=== PATIENT | female | born 1960 | race African-American/Black ===

== ENCOUNTER 2018-03-12 12:55 | Outpatient (CLI) | payer OTHER | END 2018-03-12 12:56 | disposition home or self-care (01) | LOC: BICMAMMO 12:55 | PROVIDERS: ATTEND Family Medicine | DX: Z12.31 Encounter for screening mammogram for malignant neoplasm of breast (principal) | CPT/HCPCS: 77063; 77067 ==

== ENCOUNTER 2020-01-17 11:26 | Emergency (ER) | payer SELFPAY ==
[2020-01-17] MEDS ORDERED: Morphine 4 MG/ML VIAL ONE (12:08)
[2020-01-17] MEDS ORDERED: Ondansetron PF 4 MG/2 ML Vial ONE (12:08)
[2020-01-17 12:28] LABS: #Monocytes 0.7 thou/uL (0.11-0.59); #Neutrophils 7.8 thou/uL (1.40-6.50); %Basophils 0.1 % (0.0-1.0); %Eosinophils 0.1 % (0.0-10.0); %Monocytes 7.1 % (0.0-10.0); %Neutrophils 81.8 % (42.0-75.0); Hemoglobin 12.4 g/dL (12.0-16.0); Mean Corpuscular HGB CONC 32.1 g/dL (32.0-36.0); Mean Corpuscular Hemoglobin 26.5 pg (27.0-31.0); Mean Corpuscular Volume 82.4 fL (78.0-98.0); Mean Platelet Volume 7.6 fL (7.4-10.4); Platelet Count 280 thou/uL (130-400); RBC Distribution Width 12.2 % (11.5-14.5); Red Blood Cell (RBC) Count 4.67 mill/uL (4.20-5.40); White Blood Cell (WBC) Count 9.5 thou/uL (4.8-10.8)
[2020-01-17 12:30] LABS: Bilirubin Negative (Negative); Blood, Urine Trace (Negative); Clarity Turbid (Clear); Glucose, Urine (Dipstick) Normal (Negative); Leukocyte Negative Leu/uL (Negative); Mucous/LPF 1+ LPF (<2+); Nitrite Negative (Negative); Protein, Urine (Dipstick) 30 mg/dL (Neg-Trace); RBC/HPF 0-3 HPF (0-3); Squamous Epithelial 21-50 HPF (0-3); Urobilinogen Normal mg/dL (Less than 2)
[2020-01-17 12:36] LABS: Bacteria/HPF 2+ HPF (None Seen)
[2020-01-17 12:50] LABS: ALT (SGPT) 14 U/L (8-55); AST (SGOT) 11 U/L (5-34); Albumin 4.2 g/dL (3.5-5.0); Alkaline Phosphatase 98 U/L (40-110); Anion Gap 14 mmol/L (10-20); BUN (Urea Nitrogen) 11 mg/dL (9.8-20.1); Bilirubin, Total 1.3 mg/dL (0.2-1.2); Calc. Creatinine Clearance 0 mL/min (70-130); Calcium 9.2 mg/dL (7.8-10.44); Carbon Dioxide 29 mmol/L (22-29); Chloride 98 mmol/L (98-107); Estimated GFR-MDRD 74; Globulin 3.1 g/dL (2.4-3.5); Glucose 119 mg/dL (70-105); Lipase 10 U/L (8-78); Potassium 3.3 mmol/L (3.5-5.1); Protein, Total 7.3 g/dL (6.0-8.3); Sodium 138 mmol/L (136-145)
--- NOTE | 2020-01-17 12:52 | CT ---
CT ABDOMEN AND PELVIS WITHOUT CONTRAST: HISTORY: Right side flank pain. FINDINGS: Absence of oral and IV contrast reduces the sensitivity of the exam, particularly for the evaluation of solid organs involved. There are mild infiltrates versus atelectatic changes in the lung bases. No free air or free fluid is seen in the abdomen or pelvis. A partially calcified gallstone is present. The appendix is normal. T he small bowel loops are not abnormally dilated. There is no evidence of aneurysmal dilatation of the abdominal aorta. There are mild degenerative changes in the spine. Large mass in the right lobe of t he liver, likely hemangioma is stable since 05/25/2009. No calculi are seen in the kidneys, ureters or urinary bladder. No hydroureteronephrosis is noted on either side. Uterus is present. IMPRESSION: 1. Bibasilar atelectasis versus mild infiltrates. 2. Cholelithiasis. 3. No CT evidence of urinary tract calculi or obstruction or appendicitis. POS: [facility]
--- NOTE | 2020-01-17 14:26 | CT ---
CT PULMONARY ANGIOGRAM WITH IV CONTRAST AND 3D POSTPROCESSING: Date: 01/17/2020 HISTORY: Elevated D-Dimer and right-sided chest pain. FINDINGS: There is good contrast opacification of the pulmonary arterial vasculature without filling defects to suggest pulmonary embolism. The thoracic aorta is well opacified without aneurysm or dissection. No pleural or pericardial effusions are seen. There is patchy consolidation in the right lung base and m ild infiltrates/atelectatic changes in the left lung base. A tiny right pleural effusion is present. Upper abdominal tomograms demonstrate cholelithiasis and a stable large mass in the right lobe of the liver which is stable since the CT chest of 05/25/2009 and demonstrates hyperechogenicity on ultraso und of 06/30/2019, likely due to a hemangioma. IMPRESSION: 1. No CT evidence of pulmonary embolism. 2. Probable pneumonia. RECOMMENDATION: A technetium-99m labeled RBC scan is recommended to confirm hemangioma in the right lobe of the liver . CODE T. POS: [facility]
[2020-01-17] MEDS ORDERED: Iopamidol-370 76% 500 ML 1 ML ONE (14:36)
== END 2020-01-17 14:35 | disposition home or self-care (01) ==
LOC: ERS 11:26
DX: R07.89 Other chest pain (principal); R10.9 Unspecified abdominal pain; I10 Essential (primary) hypertension; Z79.899 Other long term (current) drug therapy
CPT/HCPCS: 71275; 74176; 80053; 81003; 81015; 83690; 84484; 85025; 85379; 87086; 93005; 96374; 96375; J2270; J2405; Q9967

== ENCOUNTER 2024-12-20 23:17 | Emergency (ER) | payer SELFPAY ==
[2024-12-21] MEDS ORDERED: Ibuprofen 200 MG TAB ONE ×2 (00:05→00:07)
[2024-12-21] MEDS ORDERED: Ketorolac Tromethamine 30 MG (1 mL) VIAL ONE (00:23)
[2024-12-21] MEDS ORDERED: Acetaminophen 500 MG TAB ONE (00:23)
== END 2024-12-21 00:56 | disposition home or self-care (01) ==
LOC: ERS 23:17
DX: B34.9 Viral infection, unspecified (principal); I10 Essential (primary) hypertension
CPT/HCPCS: 71045; 87428; 96372; J1885